=== PATIENT | male | born 1980 | race African-American/Black ===

== ENCOUNTER 2020-03-05 17:21 | Emergency (ER) | payer OTHER ==
[~2020-03-05] VITALS: Ht 172.7 cm; Wt 99.8 kg
[2020-03-05] MEDS ORDERED: MORPHINE SULFATE 4 MG/1 ML DISP.SYRIN IM ONE ×2 (17:45→18:45)
[2020-03-05] MEDS ORDERED: MORPHINE SULFATE 4 MG/1 ML DISP.SYRIN ONE ×3 (17:52→18:56)
[2020-03-05] MEDS ORDERED: TDAP DIPH,PERTUSS,TET VAC/PF 0.5 ML DISP.SYRIN IM ONE ×2 (18:30→18:56)
[2020-03-05] MEDS ORDERED: ONDANSETRON 4 MG/2 ML VIAL ONE ×2 (18:56→21:57)
[2020-03-05] MEDS ORDERED: MORPHINE SULFATE 4 MG/1 ML DISP.SYRIN IV ONE (19:00)
[2020-03-05] MEDS ORDERED: ONDANSETRON 4 MG/2 ML VIAL IV ONE ×2 (19:00→22:00)
[2020-03-05 19:12] LABS: BASOPHILS # (AUTO) 0.1 K/uL (0.0-8.0); BASOPHILS % (AUTO) 0.5 % (0.0-2.0); EOSINOPHILS # (AUTO) 0.1 K/uL (0.0-0.7); HEMATOCRIT 40.1 % (36.7-47.1); HEMOGLOBIN 13.1 g/dL (12.5-16.3); LYMPHOCYTES # (AUTO) 1.4 K/uL (20.0-40.0); LYMPHOCYTES % (AUTO) 12.2 % (20.5-51.5); MEAN CORPUSCULAR HEMOGLOBIN 28.6 uug (23.8-33.4); MEAN CORPUSCULAR HGB CONC 33 g/dL (32.5-36.3); MEAN CORPUSCULAR VOLUME 87.7 fL (73.0-96.2); MONOCYTES # (AUTO) 0.8 K/uL (2.0-10.0); MONOCYTES % (AUTO) 7.1 % (0.0-11.0); NEUTROPHILS % (AUTO) 79.2 % (38.5-71.5); PLATELET COUNT (AUTO) 246 K/uL (152-348); RED BLOOD CELL COUNT(AUTO) 4.57 MIL/uL (4.06-5.63); WHITE BLOOD COUNT (AUTO) 11.4 K/uL (3.6-10.2)
[2020-03-05 19:19] LABS: CREATININE 1.1 mg/dL (0.6-1.3); POTASSIUM 3.9 mmol/L (3.5-5.1)
--- NOTE | 2020-03-05 19:19 | NUR ---
Received patient in shift report for Javier RN, Patient noted resting in bed, no signs of acute distress noted
[2020-03-05] MEDS ORDERED: HYDROMORPHONE 1 MG/1 ML DISP.SYRIN ONE ×2 (19:42→21:57)
[2020-03-05] MEDS ORDERED: HYDROMORPHONE 1 MG/1 ML DISP.SYRIN IV ONE ×3 (19:45→22:00)
[2020-03-05] MEDS ORDERED: PROPOFOL 200 MG/20 ML BOTTLE ONE ×2 (19:59→20:42)
--- NOTE | 2020-03-05 20:25 | NUR ---
Starting time for Procedure:2024 left shoulder closed reduction done my MD Bhat 2024: 174/110, 100% 15 liters nonrebreather, 98 HR 2028: propofol 50 MG given in right 20g IV 2029: propofol 50 MG given in right 20g IV, 0.5 Dilaudid IV given 2031: propofol 50 MG given in right 20g IV, VITALS: 155/79, 100% 15 liters nonrebreather, 93HR 2035: 1mg dilaudid given in IV, propofol 50 MG given in right 20g IV 2037: propofol 50 MG given in right 20g IV 2038: VITALS: 155/82, 100% on 15 liters nonrebreather, 97 HR 2039: propofol 50 MG given in right 20g IV, reduction preformed at this time 2041: propofol 50 MG given in right 20g IV 2044: VITALS: 140/79, 100% on 15 liters nonrebreather, 95 HR 2052: VITALS: 172/86, 100% on 15 liters nonrebreather, 93 HR 2054: VITALS: 1mg Dilaudid given IV 2100: XRAY done at this time to left shoulder to verify placement 2112: CT noted taking patient to Radiology department at this time
[2020-03-05] MEDS ORDERED: HYDROMORPHONE 2 MG/1 ML DISP.SYRIN ONE (20:39)
[2020-03-05] MEDS ORDERED: PROPOFOL 1,000 MG/100 ML BOTTLE IV ONE (21:00)
[2020-03-05] MEDS ORDERED: KETOROLAC TROMETHAMINE 30 MG INJ ONE (21:56)
[2020-03-05] MEDS ORDERED: KETOROLAC TROMETHAMINE 30 MG INJ IVP ONE (22:00)
--- NOTE | 2020-03-05 22:12 | NUR ---
Patient discharged to home in stable condition. Able to ambulate in steady manner. Took all belongings. RX given. Written and verbal after care instructions given. Patient verbalizes understanding of instructions. Stressed follow up or return to ER for worsening s/s.
[2020-03-05 22:16] VITALS: BP 153/88
== END 2020-03-05 22:16 | disposition home or self-care (01) ==
LOC: ER 17:29
DX: S43.015A Anterior dislocation of left humerus, initial encounter (principal); S42.252A Displaced fracture of greater tuberosity of left humerus, initial encounter for closed fracture; V18.9XXA Unspecified pedal cyclist injured in noncollision transport accident in traffic accident, initial encounter; Y93.55 Activity, bike riding; Y92.89 Other specified places as the place of occurrence of the external cause; R20.2 Paresthesia of skin; J45.909 Unspecified asthma, uncomplicated; Z88.0 Allergy status to penicillin; R94.31 Abnormal electrocardiogram [ECG] [EKG]; Z20.828 Contact with and (suspected) exposure to other viral communicable diseases
CPT/HCPCS: 23650; 36415; 73030 ×2; 73200; 80048; 85025; 85730; 87426; 90471; 90715; 93005; 96374; 96375; 96376; 99152; 99285; J1170 ×3; J1885; J2270 ×3; J2405 ×2; A4663; G0500; J3490